=== PATIENT | male | born 1940 | race Caucasian/White ===

== ENCOUNTER 2024-02-10 10:58 | Inpatient (IN) | payer OTHER ==
[2024-02-10 11:33] LABS: PT Prothrombin Time 17.8 SECONDS (9.4-12.5); PTT, Activated Partial Thromb 35.5 SECONDS (24.3-36.9); Protime INR 1.61
[2024-02-10 11:36] LABS: Absolute Eosinophils 0.1 K/uL (0-0.5); Absolute Lymphocytes (CBC) 0.6 K/uL (0.7-4.9); Absolute Monocytes 0.3 K/uL (0.1-1.3); Absolute Neutrophil 10.4 K/uL (1.8-8.0); Basophils % 0.2 % (0-1.3); Eosinophils % 1.1 % (0-4.4); Hematocrit 47.8 % (39.6-49.0); Hemoglobin 15.4 g/dL (13.6-17.9); Lymphocytes % 5.2 % (15.3-44.8); MCH 29.2 pg (27.0-35.0); MCHC 32.3 g/dL (32.0-36.0); MCV 90.4 fL (80-100); MPV 8.1 fL (7.6-11.3); Monocytes % 2.2 % (3.3-12.3); Neutrophils % 91.3 % (41.7-73.7); Nucleated Red Blood Cells % 0.1 % (0-0); Platelets 152 thou/uL (152-406); RBC Red Blood Cell Count 5.28 M/uL (4.33-5.43); Red Cell Distribution Width 13.2 % (12.1-15.2)
[2024-02-10 11:45] LABS: Albumin 4.2 g/dL (3.4-5.0); Albumin/Globulin Ratio 1.2 (1.1-1.8); Anion Gap 5.6 mEq/L (5.0-15.0); Bilirubin Direct 0.2 mg/dL (0-0.2); Bilirubin Indirect, Calculated 0.7 mg/dL (0.2-0.8); Bilirubin Total 0.9 mg/dL (0.2-1.0); Globulin 3.6 g/dL (2.3-3.5); Potassium 3.6 mEq/L (3.5-5.1); Protein, Total 7.8 g/dL (6.4-8.2); Troponin High Sensitivity 11.5 pg/mL (<58.9)
--- NOTE | 2024-02-10 12:03 | RAD REPORT ---
Procedure: Chest Single View History: Chest pain Comparison: 2010 The lungs appear clear of acute infiltrate. No significant pleural effusion noted. The heart is normal size. Large hiatal hernia IMPRESSION: No acute abnormality is displayed.
--- NOTE | 2024-02-10 12:12 | EDPHYS ---
Physician Documentation [facility] Name: Mae Mattson Age: 83 yrs Sex: Male : 1940 Arrival Date: 02/10/2024 Time: 10:58 Bed 3 Private MD: ED Physician Lico Hubbard HPI: 02/09 11:43 This 83 yrs old Male presents to ER via EMS with complaints of Shortness Of Breath, rn General Weakness. 11:43 The patient has shortness of breath at rest, with light activity. Onset: The rn symptoms/episode began/occurred this morning. The patient's shortness of breath is aggravated by exertion, light activity. Severity of symptoms: At their worst the symptoms were moderate in the emergency department the symptoms have improved. The patient has not experienced similar symptoms in the past. Patient reports shortness of breath that started this morning when taking out the trash. Patient has a history of atrial fibrillation. Patient reports heart rate is faster than normal for him but EMS reports has been in the 80s and 90s, irregular. Denies illness or fever. No cough. No chest pain. Does report diaphoresis earlier. Oxygen was 87 to 89% when picked up by EMS.. Historical: - Allergies: 11:01 No Known Allergies; rs5 - Home Meds: 11:01 Xarelto oral [Active]; Lisinopril Oral [Active]; hydralazine Oral [Active]; aa5 - PMHx: 11:01 Cerebrovascular accident; Hypertensive disorder; Hypercholesterolemia; rs5 11:02 Atrial fibrillation; rs5 - PSHx: 11:01 None; rs5 - Immunization history:: Adult Immunizations up to date. - Infectious Disease History:: Denies. - Social history:: Smoking status: Patient/guardian denies using tobacco, but has a distant history of tobacco abuse. - Family history:: not pertinent. - Hospitalizations: : No recent hospitalization is reported. ROS: 11:43 Constitutional: Negative for fever, chills, and weight loss, Cardiovascular: Positive rn for palpitations Respiratory: Positive for shortness of breath Abdomen/GI: Negative for abdominal pain, nausea, vomiting, diarrhea, and constipation, MS/Extremity: Negative for injury and deformity, Skin: Negative for injury, rash, and discoloration, Neuro: Positive for generalized weakness Exam: 11:43 Constitutional: This is a well developed, well nourished patient who is awake, alert, rn mild tachypnea Head/Face: Normocephalic, atraumatic. Cardiovascular: Regular rate and rhythm. No pulse deficits. Respiratory: Mild tachypnea, diminished at bases Abdomen/GI: Soft, non-tender MS/ Extremity: Pulses equal, no cyanosis. Neuro: Awake and alert, GCS 15 14:02 ECG was reviewed by the Attending Physician. rn Vital Signs: 10:59 BP 147 / 91; Pulse 77; Resp 18; Temp 97.8(TE); Pulse Ox 97% on R/A; aa5 14:00 BP 121 / 66; Pulse 83; Resp 14 S; Temp 98(TE); Pulse Ox 97% on R/A; aa5 14:40 BP 125 / 70; Pulse 81; Resp 17; Pulse Ox 97% on R/A; rs5 MDM: 10:59 Patient medically screened. rn 12:09 Differential diagnosis: CHF exacerbation, Myocardial Infarction pneumonia, Pneumothorax rn pulmonary edema, Pulmonary Embolism Unstable Angina. Data reviewed: vital signs, nurses notes, lab test result(s), EKG, radiologic studies, plain films, and as a result, I will admit patient. Consideration of Admission/Observation Patient was admitted/placed on observation. Escalation of care including admission/observation considered. Independent interpretation of the following test(s) in the Emergency Department EKG: See my EKG interpretation above X-Ray: My interpretation is Chest x-ray images negative for pneumothorax or pneumonia per my interpretation. Counseling: I had a detailed discussion with the patient and/or guardian regarding the historical points, exam findings, and any diagnostic results supporting the discharge/admit diagnosis, lab results, radiology results, the need for further work-up and treatment in the hospital. 12:10 ED course: Patient still tachypneic and requiring oxygen. Chest x-ray is clear. Will government minister to hospitalist service for further evaluation and care. CT chest for PE ordered.. 02/09 11:00 Order name: BMP; Complete Time: 11:53 rn 02/09 11:00 Order name: Blood Culture Adult (2) rn 02/09 11:00 Order name: CBC with Diff; Complete Time: 12:55 rn 02/09 11:00 Order name: Hepatic Function; Complete Time: 11:53 rn 02/09 11:00 Order name: NT PRO-BNP; Complete Time: 11:53 rn 02/09 11:00 Order name: PT-INR; Complete Time: 11:53 rn 02/09 11:00 Order name: Ptt, Activated; Complete Time: 11:53 rn 02/09 11:00 Order name: Troponin HS; Complete Time: 11:53 rn 02/09 11:00 Order name: Lactate w/ 2H reflex if indic.; Complete Time: 11:53 rn 02/09 12:28 Order name: CBC Smear Scan; Complete Time: 12:55 EDMS 02/09 13:35 Order name: CBC with Automated Diff EDMS 02/09 13:35 Order name: CBC with Automated Diff EDMS 02/09 13:35 Order name: Comprehensive Metabolic Panel EDMS 02/09 13:35 Order name: Comprehensive Metabolic Panel EDMS 02/09 13:35 Order name: Lipid Profile EDMS 02/09 13:35 Order name: Lipid Profile EDMS 02/09 13:35 Order name: Protime (+INR) EDMS 02/09 13:35 Order name: Protime (+INR) EDMS 02/09 13:35 Order name: PTT, Activated Partial Thromb EDMS 02/09 13:35 Order name: PTT, Activated Partial Thromb EDMS 02/09 13:35 Order name: Troponin High Sensitivity EDMS 02/09 13:35 Order name: Troponin High Sensitivity EDMS 02/09 13:35 Order name: Troponin High Sensitivity EDMS 02/09 11:00 Order name: XRAY CXR (1 view); Complete Time: 12:05 rn 02/09 12:10 Order name: CT Chest For PE Angio; Complete Time: 12:55 rn 02/09 11:00 Order name: EKG; Complete Time: 11:01 rn 02/09 13:35 Order name: CONS Physician Consult EDSC 02/09 11:00 Order name: Cardiac monitoring; Complete Time: 11:04 rn 02/09 11:00 Order name: EKG - Nurse/Tech; Complete Time: 11:04 rn 02/09 11:00 Order name: IV Saline Lock; Complete Time: 11:04 rn 02/09 11:00 Order name: Labs collected and sent; Complete Time: 11:19 rn 02/09 11:00 Order name: O2 Per Protocol; Complete Time: 11:04 rn 02/09 11:00 Order name: O2 Sat Monitoring; Complete Time: 11: rn EC:02 Rate is 82 beats/min. Rhythm is irregularly irregular. QRS interval is normal. QT rn interval is normal. No Q waves. T waves are Normal. No ST changes noted. Clinical impression: Atrial Fibrillation. Interpreted by me. Reviewed by me. Administered Medications: No medications were administered Disposition Summary: 02/10/24 12:11 Hospitalization Ordered Notes: Hospitalization Status: Observation rn Provider: Jim Barnard rn Location: Telemetry/MedSurg (Inpatient) rn Condition: Stable rn Problem: new rn Symptoms: have improved rn Bed/Room Type: Standard rn Room Assignment: 230(02/10/24 14:12) bc6 Diagnosis - Dyspnea, unspecified rn - Hypoxemia rn - Persistent atrial fibrillation rn Forms: - Medication Reconciliation Form rn - SBAR form rn - Leadership Thank You Letter rn Signatures: Dispatcher [employer] EDSC Magy Jones, RN RN iw Lico Hubbard MD MD rn Calderon, Audri RN RN aa5 Raphael Ruiz RN RN rs5 Roya Lagunas bc6 Corrections: (The following items were deleted from the chart) 11: 11:00 BASIC METABOLIC PANEL+C.LAB.BRZ ordered. EDSC EDMS 11: 11:00 BLOOD CULTURE*+BA.LAB.BRZ ordered. EDSC EDMS 11: 11:00 CBC+H.LAB.BRZ ordered. EDSC EDSC 11: 11:00 HEPATIC FUNCTION+C.LAB.BRZ ordered. EDSC EDSC 11: 11:00 PROBNP+C.LAB.BRZ ordered. EDSC EDMS 11: 11:00 PROTIME (+INR)+COAG.LAB.BRZ ordered. EDSC EDMS 11: 11:00 PTT, ACTIVATED+COAG.LAB.BRZ ordered. EDSC EDMS 11: 11:00 Troponin High Sensitivity+C.LAB.BRZ ordered. EDSC EDMS 13:48 12:11 rn bc6 14:05 13:48 402 bc6 iw 14:12 14:05 217 iw bc6
--- NOTE | 2024-02-10 12:12 | ER ---
Nurse's Notes [facility] Name: Mae Mattson Age: 83 yrs Sex: Male : 1940 Arrival Date: 02/10/2024 Time: 10:58 Bed 3 Private MD: Diagnosis: Dyspnea, unspecified;Hypoxemia;Persistent atrial fibrillation Presentation: 02/09 10:59 Chief complaint: EMS states: Generalized weakness and SOB that started this morning. rs5 Coronavirus screen: At this time, the client does not indicate any symptoms associated with coronavirus-19. Ebola Screen: No symptoms or risks identified at this time. Initial Sepsis Screen: Does the patient meet any 2 criteria? No. Patient's initial sepsis screen is negative. Does the patient have a suspected source of infection? No. Patient's initial sepsis screen is negative. Risk Assessment: Do you want to hurt yourself or someone else? Patient reports no desire to harm self or others. Onset of symptoms was February 10, 2024. Care prior to arrival: IV initiated. 20 GA, in the right antecubital area. 10:59 Method Of Arrival: EMS: [facility] rs5 10:59 Acuity: ANJALI 2 rs5 Historical: - Allergies: 11:01 No Known Allergies; rs5 - Home Meds: 11:01 Xarelto oral [Active]; Lisinopril Oral [Active]; hydralazine Oral [Active]; aa5 - PMHx: 11:01 Cerebrovascular accident; Hypertensive disorder; Hypercholesterolemia; rs5 11:02 Atrial fibrillation; rs5 - PSHx: 11:01 None; rs5 - Immunization history:: Adult Immunizations up to date. - Infectious Disease History:: Denies. - Social history:: Smoking status: Patient/guardian denies using tobacco, but has a distant history of tobacco abuse. - Family history:: not pertinent. - Hospitalizations: : No recent hospitalization is reported. Screenin:01 [facility] ED Fall Risk Assessment (Adult) History of falling in the last 3 months, rs5 including since admission No falls in past 3 months (0 pts) Confusion or Disorientation No (0 pts) Intoxicated or Sedated No (0 pts) Impaired Gait Yes (1 pt) Mobility Assist Device Used Yes (1 pt) Altered Elimination No (0 pt) Score/Fall Risk Level 0 - 2 = Low Risk Oriented to surroundings, Maintained a safe environment. Abuse screen: Denies threats or abuse. Nutritional screening: No deficits noted. Tuberculosis screening: No symptoms or risk factors identified. Assessment: 11:01 General: Appears in no apparent distress. uncomfortable, Behavior is calm, cooperative. rs5 Pain: Denies pain. Neuro: Level of Consciousness is awake, alert, obeys commands, Oriented to person, place, time, situation. Cardiovascular: Patient's skin is warm and dry. Respiratory: Reports shortness of breath Airway is patent Respiratory effort is even, unlabored, Respiratory pattern is regular, symmetrical. GI: Abdomen is round non-distended, Abd is soft and non tender X 4 quads. : No signs and/or symptoms were reported regarding the genitourinary system. EENT: No signs and/or symptoms were reported regarding the EENT system. Derm: Skin is intact, Skin is pink, warm \T\ dry. Musculoskeletal: Range of motion: intact in all extremities, pt reports generalized weakness. 12:10 Reassessment: Patient and/or family updated on plan of care and expected duration. Pain rs5 level reassessed. Patient is alert, oriented x 3, equal unlabored respirations, skin warm/dry/pink. 13:15 Reassessment: No changes from previously documented assessment. rs5 14:46 Reassessment: Patient and/or family updated on plan of care and expected duration. Pain rs5 level reassessed. Patient is alert, oriented x 3, equal unlabored respirations, skin warm/dry/pink. Vital Signs: 10:59 BP 147 / 91; Pulse 77; Resp 18; Temp 97.8(TE); Pulse Ox 97% on R/A; aa5 14:00 BP 121 / 66; Pulse 83; Resp 14 S; Temp 98(TE); Pulse Ox 97% on R/A; aa5 14:40 BP 125 / 70; Pulse 81; Resp 17; Pulse Ox 97% on R/A; rs5 ED Course: 10:59 Patient arrived in ED. rn 10:59 Lico Hubbard MD is Attending Physician. rn 10:59 Arm band placed on Patient placed in an exam room, on a stretcher. aa5 11:00 Maintain EMS IV. Dressing intact. Good blood return noted. Site clean \T\ dry. Gauge \T\ aa 5 site: 18G to R AC . Flushed with 10 mL NS. 11:01 Triage completed. rs5 11:01 Patient has correct armband on for positive identification. Placed in gown. Bed in low rs5 position. Call light in reach. Side rails up X2. 11:01 No provider procedures requiring assistance completed. rs5 11:10 Inserted saline lock: 22 gauge in left antecubital area, using aseptic technique. Blood rs5 collected. Flushed with 10 mL NS. 11:58 XRAY CXR (1 view) In Process Unspecified. EDMS 12:10 Jim Barnard is Hospitalizing Provider. rn 12:30 CT Chest For PE Angio In Process Unspecified. EDMS 13:47 1347 CM met with and his son in law Bertrand at the bedside in the ED exam room. ane Patient identified by name and . Demographic sheet confirmed. states his daughter Monique and son in law Bertrand live with him in a singles story home. Patient reports that prior to admission, he performs ADLs independently with use of a cane. No HH, home oxygen no other DME or medical services at this time. Patient's PCP is Dr.Rogerio Desai and patient reports he has an MPOA in place. His preferred plan is to return home upon discharge and states his daughter and son in are available to transport him home. CM team will continue to follow and coordinate care during this hospital stay. 14:45 Provided Education on: need for admit. rs5 14:45 Patient admitted, IV remains in place. rs5 Administered Medications: No medications were administered Medication: 14:45 VIS not applicable for this client. rs5 Outcome: 12:11 Decision to Hospitalize by Provider. rn 14:45 Admitted to Med/surg accompanied by nurse, with chart, rs5 14:45 Condition: stable 14:45 Instructed on the need for admit, Demonstrated understanding of instructions, 14:46 Patient left the ED. rs5 Signatures: Dispatcher [employer] EDMS Lico Hubbard MD MD rn Calderon, Audri, RN RN [email or web address] Raphael Ruiz RN RN ana [email or web address] Jinny Borrero RN RN ane Corrections: (The following items were deleted from the chart) 12:11 11:01 Respiratory: Airway is patent Respiratory effort is even, unlabored, Respiratory rs5 pattern is regular, symmetrical, rs5 12:21 11:28 Mallory Soler, RN is Primary Nurse. aa5 aa5 13:53 10:59 BP 147 / 91; Pulse 77bpm; Resp 18bpm; Pulse Ox 97% RA; rs5 aa5
[2024-02-10 12:28] LABS: Blood Morphology Comment NOT SEEN (NOT SEEN); Platelet Estimate ADEQ; White Blood Cell Scan OK (OK)
--- NOTE | 2024-02-10 12:41 | RAD REPORT ---
EXAMINATION: CTA CHEST PE CLINICAL INDICATION: DYSPNEA TECHNIQUE: This examination was performed according to an angiographic protocol with 3D post-processi ng. This involves 3D reconstructions, MIPs, volume rendered images and/or shaded surface rendering. One or more of the following dose reduction techniques were used: Automated exposure control, adjustm ent of the mA and/or kV according to patient size, and/or iterative reconstruction. Unless otherwise specified, incidental findings do not require dedicated imaging follow-up. COMPARISON: 02/10/2024 chest film FINDINGS: LUNGS: No evidence of airspace or interstitial process. No nodules. Atelectasis is noted in the left lung base. PLEURA: No pleural effusion. No pneumothorax. MEDIASTINUM AND LYMPH NODES: No mediastinal mass or fluid collection. Normal size mediastinal, hilar, and axillary lymph nodes. THORACIC AORTA: Normal caliber and configuration. PULMONARY ARTERIES: Normal caliber. No evidence of pulmonary emboli to the subsegmental level. OSSEOUS STRUCTURES AND CHEST WALL: Intact. 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 IMPRESSION: No evidence of pulmonary emboli to the subsegmental level. There is a large hiatal hernia with majority of the stomach appearing intrathoracic. 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
[2024-02-10] MEDS ORDERED: ACETAMINOPHEN 500 MG TAB PO PRN (13:21)
[2024-02-10] MEDS ORDERED: MORPHINE 2 MG/ML SYR IV PRN (13:21)
[2024-02-10] MEDS ORDERED: ONDANSETRON 4 MG/2 ML VIAL IV PRN (13:21)
--- NOTE | 2024-02-10 13:35 | P.HP ---
Certification for Inpatient Patient admitted to: Inpatient With expected LOS: >2 Midnights Patient will require the following post-hospital care: None Practitioner: I am a practitioner with admitting privileges, knowledge of patient current condition, hospital course, and medical plan of care. Services: Services provided to patient in accordance with Admission requirements found in Title 42 Section 412.3 of the Code of Federal Regulations Patient History Date of Service: 02/10/24 Reason for admission: Palpitations History of Present Illness: Patient is an 83-year-old gentleman who presents to the emergency room with palpitations. Patient with a history of atrial fibrillation. Patient also with hypertension and dyslipidemia. Patient has been on Xarelto but he has not been taking medication for rate control. Patient states he was having palpitations and shortness of breath. Patient came to the emergency room for further evaluation. In the ER patient was in A-fib RVR with rates in the 140s. Spoke with family members regarding patient's care. Patient will get started on sotalol and will admit to the hospital with cardiology consultation. Continue with Xarelto. Allergies No Known Allergies Allergy (Unverified 02/10/24 12:56) Home Medications: Diphenhydramine [Benadryl*] 25 mg PO DAILY 02/10/24 Lisinopril [Zestril] 40 mg PO DAILY 02/10/24 Rivaroxaban [Xarelto] 20 mg PO DAILY 02/10/24 hydroCHLOROthiazide [Hydrochlorothiazide] 12.5 mg PO DAILY 02/10/24 - Past Medical/Surgical History -: Atrial fibrillation -: Hypertension -: Dyslipidemia Past Surgical History: Patient denies surgical history - Family History Father Medical History: Lung disease Notes: COPD - Mother Medical History: Cancer Notes: Breast CA - Brother Medical History: Cancer Notes: Bladder Cancer - - Social History Smoking Status: Former smoker Alcohol use: No CD- Drugs: No Review of Systems 10-point ROS is otherwise unremarkable Physical Examination - Vital Signs Temperature: 98 F Blood Pressure: 130/80 Pulse: 150 Respirations: 18 Pulse Ox (%): 95 - Physical Exam General: Alert, In no apparent distress, Oriented x3 HEENT: Atraumatic, PERRLA, Mucous membr. moist/pink, EOMI, Sclerae nonicteric Neck: Supple, 2+ carotid pulse no bruit, No LAD, Without JVD or thyroid abnormality Respiratory: Clear to auscultation bilaterally, Normal air movement Cardiovascular: Irregular heart rate/rhythm Gastrointestinal: Normal bowel sounds, Soft and benign, Non-distended, No tenderness Musculoskeletal: No clubbing, No swelling, No tenderness Integumentary: No rashes Neurological: Normal gait, Normal speech, Normal strength at 5/5 x4 extr, Normal tone, Sensation intact, Cranial nerves 3-12 intact, Normal affect Lymphatics: No axilla or inguinal lymphadenopathy - Studies Laboratory Data (last 24 hrs) 02/10/24 02/10/24 02/10/24 11:18 11:18 11:18 WBC 11.40 H Hgb 15.4 Hct 47.8 Plt Count 152 PT 17.8 H INR 1.61 APTT 35.5 Sodium 138 Potassium 3.6 BUN 32 H Creatinine 1.56 H Glucose 161 H Total Bilirubin 0.9 AST 24 ALT 34 Alkaline Phosphatase 61 Assessment & Plan - Problems (Diagnosis) (1) Atrial fibrillation with rapid ventricular response Current Visit: Yes Status: Acute (2) Hypertension Current Visit: Yes Status: Acute (3) Dyslipidemia Current Visit: Yes Status: Acute - Plan Plan: 1. Continue with medication for rate control 2. Patient started on sotalol and will reassess in a.m. 3. Echocardiogram 4. Anticoagulation 5. Cardiology consultation 6. Serial troponins 7. CT imaging negative 8. GI DVT prophylax Discharge Plan: Home Plan to discharge in: Greater than 2 days - Advance Directives Does patient have a Living Will: No Does patient have a Durable POA for Healthcare: No - Code Status/Comfort Care Code Status Assessed: Yes Code Status: Full Code Critical Care: No Time Spent Managing PTS Care (In Minutes): 45
[2024-02-10 14:48] VITALS: BMI 29.0
[2024-02-10] MEDS: NA CHLORIDE 0.9% 1,000 ML IV SCH (15:15)
[2024-02-10] MEDS: SOTALOL HCL 80 MG TAB PO SCH (17:12)
[2024-02-10] MEDS: APIXABAN 2.5 MG TABLET PO SCH (20:52)
[2024-02-11 05:02] LABS: PT Prothrombin Time 15.5 SECONDS (9.4-12.5); Protime INR 1.4
[2024-02-11 05:03] LABS: PTT, Activated Partial Thromb 33.2 SECONDS (24.3-36.9)
[2024-02-11 05:05] LABS: Absolute Eosinophils 0.1 K/uL (0-0.5); Absolute Lymphocytes (CBC) 0.5 K/uL (0.7-4.9); Absolute Monocytes 0.6 K/uL (0.1-1.3); Absolute Neutrophil 6.9 K/uL (1.8-8.0); Basophils % 0.5 % (0-1.3); Eosinophils % 0.7 % (0-4.4); Hematocrit 39.6 % (39.6-49.0); Hemoglobin 13.1 g/dL (13.6-17.9); Lymphocytes % 6.8 % (15.3-44.8); MCH 29.7 pg (27.0-35.0); MCHC 33.2 g/dL (32.0-36.0); MCV 89.4 fL (80-100); MPV 8.5 fL (7.6-11.3); Monocytes % 7.1 % (3.3-12.3); Neutrophils % 84.9 % (41.7-73.7); Nucleated Red Blood Cells % 0.1 % (0-0); Platelets 121 thou/uL (152-406); RBC Red Blood Cell Count 4.43 M/uL (4.33-5.43); Red Cell Distribution Width 13.1 % (12.1-15.2)
[2024-02-11 05:12] LABS: Albumin 3.3 g/dL (3.4-5.0); Albumin/Globulin Ratio 1.1 (1.1-1.8); Anion Gap 8.4 mEq/L (5.0-15.0); Bilirubin Total 0.9 mg/dL (0.2-1.0); Globulin 3.1 g/dL (2.3-3.5); Potassium 3.4 mEq/L (3.5-5.1); Protein, Total 6.4 g/dL (6.4-8.2)
--- NOTE | 2024-02-11 08:26 | P.PN ---
Date of Service: 02/11/24 subjective Admitted with shortness of breath, worse with activity Review of Systems 10-point ROS is otherwise unremarkable Physical Examination - Vital Signs Reviewed - Physical Exam General: Alert, Oriented x3 HEENT: Atraumatic, Normocephalic Neck: Supple, 2+ carotid pulse no bruit Respiratory: Clear to auscultation bilaterally, Normal air movement Cardiovascular: Regular rate/rhythm, Normal S1 S2, Edema Capillary refill: <2 Seconds Gastrointestinal: Soft and benign, W/out hepatosplenomegaly Musculoskeletal: No clubbing, No swelling Integumentary: No rashes, No breakdown Neurological: Normal speech, Normal strength at 5/5 x4 extr Lymphatics: No axilla or inguinal lymphadenopathy Assessment and Plan - Plan. A-fib RVR uncontrolled [facility] EKG Rate is 82 beats/min. Rhythm is irregularly irregular. QRS interval is normal. QT interval is normal. No Q waves. T waves are Normal. No ST changes noted Resume home Betapace Elevated BNP, dyspnea, hypoxia Suspect CHF Echo ordered Monitor closely on telemetry Diuresis Oxygen supplementation Will try to wean down oxygen requirement Continue home medications Will obtain an echocardiogram Cardiology consult Hyperlipidemia Essential hypertension Antihypertensives titrated Continue home medications and titrate as needed Hydralazine as needed GI/DVT prophylaxis Advanced directive full code Discharge Plan: Home Plan to discharge in: Greater than 2 days - Advance Directives Does patient have a Living Will: No Does patient have a Durable POA for Healthcare: No - Code Status/Comfort Care Code Status: Full Code Time Spent Managing Pts Care (In Minutes): 30
[2024-02-11] MEDS: FUROSEMIDE 40 MG/4 ML VIAL IV SCH (09:29)
--- NOTE | 2024-02-11 15:19 | P.DS ---
Admission Date: 02/10/24 Discharge Date: 02/11/24 Disposition: ROUTINE DISCHARGE Reason for Admission: Palpitations Brief History of Present Illness: Patient is an 83-year-old gentleman who presents to the emergency room with palpitations. Patient with a history of atrial fibrillation. Patient also with hypertension and dyslipidemia. Patient has been on Xarelto but he has not been taking medication for rate control. Patient states he was having palpitations and shortness of breath. Patient came to the emergency room for further evaluation. In the ER patient was in A-fib RVR with rates in the 140s. Spoke with family members regarding patient's care. Patient will get started on sotalol and will admit to the hospital with cardiology consultation. Continue with Xarelto. - Physical Exam General: Alert, In no apparent distress, Oriented x3 HEENT: Atraumatic, PERRLA, Mucous membr. moist/pink, EOMI, Sclerae nonicteric Neck: Supple, 2+ carotid pulse no bruit, No LAD, Without JVD or thyroid abnormality Respiratory: Clear to auscultation bilaterally, Normal air movement Cardiovascular: Irregular heart rate/rhythm Gastrointestinal: Normal bowel sounds, Soft and benign, Non-distended, No tenderness Musculoskeletal: No clubbing, No swelling, No tenderness Integumentary: No rashes Neurological: Normal gait, Normal speech, Normal strength at 5/5 x4 extr, Normal tone, Sensation intact, Cranial nerves 3-12 intact, Normal affect Lymphatics: No axilla or inguinal lymphadenopathy Hospital Course: 83-year-old gentleman who presents to the emergency room with palpitations. Patient with a history of atrial fibrillation. Patient also with hypertension and dyslipidemia. Patient has been on Xarelto but he has not been taking medication for rate control. Patient states he was having palpitations and shortness of breath. Patient came to the emergency room for further evaluation. In the ER patient was in A-fib RVR with rates in the 140s. Afib improved to controlled rate, remains afib, Evaluated by cardiology, started on sotalol. Tolerating diet, stable to discharge home, follow-up with cardiology after discharge. IN 2WEEKS per cardiology Discharge medications lasix 20 mg po daily, sotalol, xarelto- instructed medication compliance Assessment Presented with uncontrolled A-fib RVR heart rate in the 140s was evaluated by cardiology, started on sotalol afib controlled rate prior to discharge- case discussed with Dr Nichols Mildly elevated BNP treated with Lasix while inpatient Hypertension, hyperlipidemia xarelto- instructed medication compliance Follow-up with cardiology outpatient after discharge Continue home medicines as previously prescribed GOAL: Clear understanding of disease process INSTRUCTIONS: Physician Discharge Instructions: -Follow-up with cardiology after discharge -Follow-up with PCP in 1 to 2 weeks -Please call Dr. Das at [phone] if any questions regarding hospital stay -Please call nursing station at [phone] if any nursing or medication questions -Return to the emergency room if symptoms worsen Diet: ADA, low sodium Activity: Fall precautions Vital Signs/Physical Exam: Temp Pulse Resp BP Pulse Ox 97 F 75 16 108/55 L 96 02/11/24 12:00 02/11/24 12:00 02/11/24 12:00 02/11/24 12:00 02/11/24 12:00 Laboratory Data at Discharge: WBC 8.10 thou/uL (4.3-10.9) 02/11/24 04:22 Hgb 13.1 g/dL (13.6-17.9) L D 02/11/24 04:22 Hct 39.6 % (39.6-49.0) 02/11/24 04:22 Plt Count 121 thou/uL (152-406) L 02/11/24 04:22 PT 15.5 SECONDS (9.4-12.5) H 02/11/24 04:22 INR 1.40 02/11/24 04:22 APTT 33.2 SECONDS (24.3-36.9) 02/11/24 04:22 Sodium 137 mEq/L (136-145) 02/11/24 04:22 Potassium 3.4 mEq/L (3.5-5.1) L 02/11/24 04:22 BUN 29 mg/dL (7-18) H 02/11/24 04:22 Creatinine 1.13 mg/dL (0.70-1.30) 02/11/24 04:22 Glucose 122 mg/dL (74-106) H 02/11/24 04:22 Total Bilirubin 0.9 mg/dL (0.2-1.0) 02/11/24 04:22 AST 20 U/L (15-37) 02/11/24 04:22 ALT 25 U/L (16-61) 02/11/24 04:22 Alkaline Phosphatase 46 U/L (45-117) D 02/11/24 04:22 Triglycerides 123 mg/dL (<150) 02/11/24 04:22 Cholesterol 129 mg/dL (<200) 02/11/24 04:22 HDL Cholesterol 35 mg/dL (40-60) L 02/11/24 04:22 Cholesterol/HDL Ratio 3.69 02/11/24 04:22 Home Medications: Diphenhydramine [Benadryl*] 25 mg PO DAILY 02/10/24 Lisinopril [Zestril] 40 mg PO DAILY 02/10/24 Rivaroxaban [Xarelto] 20 mg PO DAILY 02/10/24 hydroCHLOROthiazide [Hydrochlorothiazide] 12.5 mg PO DAILY 02/10/24 Sotalol HCl [Betapace*] 80 mg PO BID 6AM 6PM 30 Days #60 tab 02/11/24 New Medications: Sotalol HCl [Betapace*] 80 mg PO BID 6AM 6PM 30 Days #60 tab Physician Discharge Instructions: 83-year-old gentleman who presents to the emergency room with palpitations. Patient with a history of atrial fibrillation. Patient also with hypertension and dyslipidemia. Patient has been on Xarelto but he has not been taking medication for rate control. Patient states he was having palpitations and shortness of breath. Patient came to the emergency room for further evaluation. In the ER patient was in A-fib RVR with rates in the 140s. Evaluated by cardiology, started on sotalol. Tolerating diet, stable to discharge home, follow-up with cardiology after discharge. in 2 weeks Assessment Presented with uncontrolled A-fib RVR heart rate in the 140s was evaluated by cardiology, started on sotalol Mildly elevated BNP treated with Lasix while inpatient Hypertension, hyperlipidemia Chronic anticoagulation on Eliquis 2.5 twice daily Follow-up with cardiology outpatient Continue home medicines as previously prescribed GOAL: Clear understanding of disease process INSTRUCTIONS: Physician Discharge Instructions: -Follow-up with cardiology after discharge -Follow-up with PCP in 1 to 2 weeks -Please call Dr. Das at [phone] if any questions regarding hospital stay -Please call nursing station at [phone] if any nursing or medication questions -Return to the emergency room if symptoms worsen Diet: ADA, low sodium Activity: Fall precautions Diet: AHA Activity: Fall precautions Followup: PHAM BAKER [Primary Care Provider] - Lauro Figueroa MD [ACTIVE - CAN ADMIT] - Time spent managing pt's care (in minutes): 55
[2024-02-11 15:44] VITALS: O2SAT 96
--- NOTE | 2024-02-11 16:36 | EKG ---
Test Date: 2024-02-10 Test Time: 11:03:00 Dry Ice Maker: SEEMA MEASUREMENT RESULTS: Intervals: Rate: 82 ND: QRSD: 80 QT: 366 QTc: 427 Lily: P: ND: QRS: 115 T: -64 INTERPRETIVE STATEMENTS: Atrial fibrillation with premature ventricular or aberrantly conducted complexes Anterolateral infarct, age undetermined T wave abnormality, consider inferior ischemia Abnormal ECG Compared to ECG 11/16/2014 13:33:10 Ventricular premature complex(es) now present T-wave abnormality now present Possible ischemia now present Right-axis deviation no longer present Myocardial infarct finding still present Electronically Signed On 02-11-24 16:32:35 CDT by Osito Nichols
[2024-02-11 21:03] VITALS: BP 123/74; TEMP 97.9
--- NOTE | 2024-02-14 07:14 | ECHO ---
HEIGHT: 5 ft 6 in WEIGHT: 180 lb 0 oz DATE OF STUDY: 02/11/[address]: Crissy Howard LINE PILOTCameron 2-DIMENSIONAL: YES M.MODE: YES DOPPLER: YES COLOR FLOW: YES TDS: PORTABLE: YES DEFINITY: BUBBLE STUDY: DIAGNOSIS: EVALUATE FOR HEART FAILURE CARDIAC HISTORY: CATHERIZATION: SURGERY: PROSTHETIC VALVE: PACEMAKER: MEASUREMENTS (cm) DIASTOLIC (NORMALS) SYSTOLIC (NORMALS) IVSd 0.8 (0.6-1.2) LA Diam 3.5 (1.9-4.0) LVEF GREATER THAN 60% LVIDd 4.1 (3.5-5.7) LVIDs 2.4 (2.0-3.5) %FS 43% LVPWd 0.9 (0.6-1.2) Ao Diam 2.9 (2.0-3.7) 2 DIMENSIONAL ASSESSMENT: RIGHT ATRIUM: NORMAL LEFT ATRIUM: NORMAL RIGHT VENTRICLE: NORMAL LEFT VENTRICLE: NORMAL TRICUSPID VALVE: MILD TO MODERATE TRICUSPID REGURGITATION MITRAL VALVE: MILD MITRAL REGURGITATION PULMONIC VALVE: MILD PULMONIC INSUFFICIENCY AORTIC VALVE: MILD AORTIC INSUFFICIENCY PERICARDIAL EFFUSION: NONE AORTIC ROOT: MILDLY DILATED LEFT VENTRICULAR WALL MOTION: NORMAL DOPPLER/COLOR FLOW: SEE BELOW COMMENTS: 1. NORMAL LEFT VENTRICULAR EJECTION FRACTION GREATER THAN 60% WITH NORMAL WALL MOTION 2. MILD MITRAL REGURGITATION 3. MILD TO MODERATE TRICUSPID REGURGITATION 4. MILD AORTIC INSUFFICIENCY TECHNOLOGIST: TAMMI ROBBINS
--- NOTE | 2024-02-14 12:00 | EKG ---
Test Date: 2024-02-11 Test Time: 18:26:21 Pediatrics Hospitalist: JOANNE MEASUREMENT RESULTS: Intervals: Rate: 68 SC: QRSD: 74 QT: 404 QTc: 429 [place]: P: SC: QRS: 130 T: -19 INTERPRETIVE STATEMENTS: Atrial fibrillation with a competing junctional pacemaker Right axis deviation Septal infarct, age undetermined ST & T wave abnormality, consider inferior ischemia or digitalis effect Abnormal ECG Compared to ECG 02/10/2024 11:03:00 Right-axis deviation now present ST (T wave) deviation now present Ventricular premature complex(es) no longer present T-wave abnormality no longer present Myocardial infarct finding still present Possible ischemia still present Electronically Signed On 02-14-24 11:54:32 CDT by Lauro Figueroa
== END 2024-02-11 20:30 | disposition home or self-care (01) | DRG 308 ==
LOC: ER 10:58 → SUPCPDRO 10:58 → ERHOLD 13:21 → 2ND 14:26
PROVIDERS: ADMIT Hospitalist; ATTEND Hospitalist
DX: I48.19 Other persistent atrial fibrillation (principal); I50.31 Acute diastolic (congestive) heart failure; I11.0 Hypertensive heart disease with heart failure; E78.00 Pure hypercholesterolemia, unspecified; Z79.01 Long term (current) use of anticoagulants; Z86.73 Personal history of transient ischemic attack (TIA), and cerebral infarction without residual deficits; Z79.899 Other long term (current) drug therapy; Z91.148 Patient's other noncompliance with medication regimen for other reason; Z87.891 Personal history of nicotine dependence
CPT/HCPCS: 36415; 71045; 71275; 80048; 80053; 80061; 80076; 83605; 83880; 84484; 85025; 85610; 85730; 87040; 93005; 93306; 99285; J1940; J7030; Q9967